=== PATIENT | male | born 1995 | race African-American/Black ===

== ENCOUNTER 2020-07-17 10:04 | Emergency (ER) | payer SELFPAY ==
[~2020-07-17] VITALS: Ht 177.8 cm; Wt 98.3 kg
[2020-07-17] MEDS ORDERED: MAALOX/HYOSCYAMINE/LIDOCAINE 45 ML BTL ONE (10:26)
[2020-07-17] MEDS ORDERED: FAMOTIDINE 20 MG/2 ML ONE (10:26)
[2020-07-17] MEDS ORDERED: MAALOX/HYOSCYAMINE/LIDOCAINE 45 ML BTL PO ONE (10:30)
[2020-07-17] MEDS ORDERED: SODIUM CHLORIDE FLUSH 10ML SYR IVF ONE ×2 (10:30→12:00)
[2020-07-17] MEDS ORDERED: FAMOTIDINE 20 MG/2 ML IV ONE (10:30)
[2020-07-17 10:44] LABS: BASOPHILS % (AUTO) 0 % (0-1); EOSINOPHILS % (AUTO) 0 % (1-7); LYMPHOCYTES % (AUTO) 5 % (22-44); MEAN CORPUSCULAR HGB CONC 32.7 g/dL (33.2-36.2); MEAN PLATELET VOLUME 9.3 fL (7.4-10.4); MONOCYTES % (AUTO) 4 % (2-9); NEUTROPHILS % (AUTO) 91 % (42-75); PLATELET COUNT 294 x10^3/uL (130-400); RED BLOOD COUNT 5.63 x10^6/uL (4.38-5.82); RED CELL DISTRIBUTION WIDTH 13.2 % (9.4-14.8)
[2020-07-17 10:50] LABS: ALANINE AMINOTRANSFERASE 37 U/L (12-78); ALBUMIN 4.1 g/dL (3.4-5.0); ANION GAP 5 mmol/L (5-15); CALCIUM 8.8 mg/dL (8.5-10.1); CHLORIDE 106 mmol/L (98-107); CREATININE 0.98 mg/dL (0.7-1.3)
[2020-07-17 10:54] LABS: ALKALINE PHOSPHATASE 64 U/L (45-117); BILIRUBIN,TOTAL 0.6 mg/dL (0.2-1.0); TOTAL PROTEIN 8.2 g/dL (6.4-8.2)
[2020-07-17 10:58] LABS: MD SCAN
[2020-07-17] MEDS ORDERED: OMNIPAQUE 350 MG/ML, 100ML BOTTLE ONE (11:00)
--- NOTE | 2020-07-17 11:10 | NUR ---
TASK RN: URINE COLLECTED AND SENT TO LAB, PT IN CT.
[2020-07-17 11:15] VITALS: BP 138/85
[2020-07-17] MEDS ORDERED: CEFOTETAN PMX 1GM/50ML 50 ML IVPB ONE (11:30)
[2020-07-17 11:39] LABS: MICROSCOPIC INDICATED
== END 2020-07-17 12:32 | disposition left against medical advice (07) ==
LOC: ED 11:39
DX: K35.80 Unspecified acute appendicitis (principal); D72.829 Elevated white blood cell count, unspecified; R10.31 Right lower quadrant pain; R10.13 Epigastric pain; R10.11 Right upper quadrant pain; R11.2 Nausea with vomiting, unspecified
CPT/HCPCS: 36415; 74177; 76700; 80053; 81001; 83690; 85025; 96365; 96366; 96375; 99285; J3490; Q9967